=== PATIENT | male | born 1955 | race Caucasian/White ===

== ENCOUNTER → 2017-04-13 08:50 | Outpatient (CLI) | payer OTHER, SELFPAY ==
[2017-04-13 09:37] LABS: Cholesterol 233 mg/dL (200); Glucose 104 mg/dL (70-110); High Density Lipoprotein 45 mg/dL; Triglycerides 87 mg/dL; Very Low Density Lipoprotein 17 mg/dL (5-40)
== END ==
PROVIDERS: Family Provider Family Medicine; PCP Family Medicine; Visit Provider Family Medicine
DX: Z13.1 Encounter for screening for diabetes mellitus (principal); Z13.220 Encounter for screening for lipoid disorders
CPT/HCPCS: 36415; 80061; 82947

== ENCOUNTER 2020-05-11 12:28 | Outpatient (RCR) | payer MEDICARE, SELFPAY | END 2020-05-11 23:59 | LOC: IMMUN 12:28 | PROVIDERS: PCP Family Medicine; Visit Provider Family Medicine | DX: Z23 Encounter for immunization (principal) | CPT/HCPCS: 0011A; 0012A ==

== ENCOUNTER 2024-08-28 17:22 | Emergency (ER) | payer MEDICARE, SELFPAY ==
[2024-08-28 17:22] VITALS: BP 101/70; BP 98/69; PULSE 85; PULSE 87; RESP 26; TEMP 36.6; O2SAT 92; O2SAT 95; BMI 23.1
--- NOTE | 2024-08-28 17:30 | EKG12_ITS ---
Test Reason : CP Blood Pressure : */* mmHG Vent. Rate : 88 BPM Atrial Rate : 88 BPM P-R Int : 148 ms QRS Dur : 78 ms QT Int : 384 ms P-R-T Axes : 69 62 73 degrees QTcB Int : 464 ms Normal sinus rhythm Normal ECG Confirmed by DARYL JUAREZ, JEREL ([id number]), editor continuity and script MARY MALDONADO ([id number]) on 08/31/2024 7:39:18 AM Referred By: CUONG Confirmed By: JEREL BRITO MD
[2024-08-28 17:31] VITALS: O2SAT 93
[2024-08-28] MEDS: 0.9% Normal Saline (1000mL) 1,000 ML 999 ML IV (17:33)
--- NOTE | 2024-08-28 17:34 | ED.VIS.CHEST ---
HPI History of Present Illness Chief Complaint: Chest Pain Detail of Chief Complaint: Right shoulder pain. Near syncope. Informant: patient Onset/Context/Timing Onset: Today Narrative Narrative: 69-year-old male was at home preparing steaks for dinner. He said he got sudden onset of right shoulder pain. Had a near syncopal episode. Denies any prior history. Denies any chest pain. Denies any cardiac history. Prior Similar Symptoms: No Recent Illness/Hospitalization: No CVD Risk Factors: Negative for Hypertension, Diabetes or Hypercholesterolemia PE Risk Factors: Negative for Recent Travel/Surgery, Recent Immobilization, Prior DVT or PE, Cancer or OCP + Smoking + >/=35 TAD Risk Factors: Negative for Marfan's Syndrome [facility] Medical History Migraine Allergy/AdvReac Type Severity Reaction Status Date / Time No Known Allergies Allergy Verified 08/28/24 17:23 Social History Smoking Status: Current every day smoker tobacco type: cigarettes ROS ROS ED ROS Narrative Denies recent illness. Denies recent chest pain or shortness of breath. Denies exertional dyspnea or chest pain. Constitutional Constitutional ED: Denies chills or fever(s) Eyes Eyes: Reports none ENT ENT ED: Denies ear pain Cardiovascular Cardiovascular: Denies chest pain, palpitations or racing heartbeat Respiratory/Chest Respiratory/Chest: Denies cough or dyspnea Gastrointestinal Gastrointestinal: Denies abdominal pain, constipation or diarrhea Genitourinary Genitourinary ED: Denies dysuria or hematuria Musculoskeletal Musculoskeletal: Denies arthralgias or back pain Integumentary Denies abscess or Abrasions Neurologic Neurologic: Denies headache(s) Psychiatric Psychiatric: Denies anxiety or depression Endocrine Endocrinology: Denies cold intolerance Hematologic/Lymphatic Hematologic/Lymphatic: Denies easy bleeding, easy bruising or lymphadenopathy Allergic/Immunologic Allergic/Immunologic ED: Denies mouth swelling, tongue swelling or urticaria EXAM Physical Exam Narrative Exam Narrative: 69-year-old male sitting upright in bed. Initial blood pressure 98/69. No distress. H EENT exam pupils round react light. Moist mucous membranes. No trauma. Neck nontender. No JVD. No lymphadenopathy. Lungs clear to auscultation bilaterally. Heart regular rhythm rate about 85 no murmur. Chest wall ribs nontender. Abdomen soft nontender. Moving all 4 extremities. 5-5 machine brush maker strength. Dorsi plantarflexion intact. Equal symmetrical radial pulses. Calves are nontender without edema or cords. Normal dorsi plantarflexion. Normal appearance of both upper and lower extremities. Back nontender. Skin diaphoretic. Warm to the touch. Neurologically he is awake and alert. Answering questions following commands. Const Vital Signs: 08/28/24 17:22 08/28/24 17:22 08/28/24 17:31 Temperature 98 F Temperature Source Temporal Pulse Rate 87 85 Respiratory Rate 26 H 26 H Blood Pressure 98/69 101/70 Blood Pressure Mean 78 80 Pulse Ox 92 95 93 Oxygen Delivery Method Room Air Room Air Room Air 08/28/24 18:45 Temperature Temperature Source Pulse Rate 87 Respiratory Rate 20 H Blood Pressure 110/74 Blood Pressure Mean 86 Pulse Ox 97 Oxygen Delivery Method Positive well nourished and well developed; Negative for obese, cachectic, contractures or unkempt General Appearance ED: well developed; Negative for unkempt, cachectic, contractures or pallor Nutritional Appearance: Negative for cachectic or obese HEENT Reports moist mucous membranes normocephalic and atraumatic Eyes PERRL and EOMs intact bilaterally General Eye ED: Negative for pale conjunctiva or scleral icterus Neck no lymphadenopathy, supple and no JVD General: Negative for tenderness Chest Wall inspection of chest normal and palpation of chest normal Resp normal respiratory effort and clear to auscultation bilaterally Cardio regular rate, regular rhythm, S1 normal heart sound, S2 normal heart sound and no murmurs Peripheral Pulses: pulses 2+ throughout GI soft to palpation, non-tender, non-distended and no masses Back/Spine no CVA tenderness and no thoracic nor lumbar tenderness Extremity normal to inspection General Extremety ED: Negative for edema, pulses abnormal or tenderness General Extremity: Negative for edema or pulses abnormal Neuro oriented x3 and CN's II-XII intact bilaterally Sensorium / Orientation: awake, alert, oriented to person, oriented to place and oriented to time; Negative for confused or lethargic Motor Exam: strength 5/5 throughout Psych mental status grossly normal Appearance: Negative for unkempt Mood & Affect: anxious Skin no rashes or lesions noted and no wounds Skin Narrative: clammy. General Skin Exam: Negative for jaundice or pallor Rashes: No rashes noted Trauma: Negative for abrasion MDM MDM MDM Narrative Medical decision making narrative: 69-year-old male was at home has not been recently ill and right shoulder pain and a near syncopal episode but did not lose conscious. Exam is benign he is transiently hypotensive but improving. Undergoing cardiac workup. Repeat exam patient doing all well at 8:04 PM. Still feels great. However all the test with a recurrent finding abnormal. I repeated exam exam is normal. Lungs are clear. Heart is a regular rhythm. His abdomen is benign. He is neurologically intact. I do not know exactly what happened. He is never anything like this before. Currently being discharged home with outpatient follow-up. Workup was negative. History & Record Review Discussion w/independent historian: Patient Lab Data Attestation: I reviewed the patient's lab results. Lab results narrative: CBC shows a white count of 13.7. H&H is 16 and 47. Platelets 356. BMP shows a sodium 136. Gap 18. BUN and creatinine 12 and 1. Glucose 113. Initial troponin 11. 2-hour troponin 8. Chest x-ray chronic changes no acute process. Labs: Laboratory Results - last 24 hr 08/28/24 08/28/24 17:25 19:20 WBC 13.7 H RBC 5.28 Hgb 16.0 Hct 47.2 MCV 89.4 MCH 30.3 MCHC 33.9 RDW Std Deviation 46.5 H RDW Coeff of Roni 14.3 Plt Count 356 MPV 9.1 Immature Gran % (Auto) 0.500 Neut % (Auto) 56.7 Lymph % (Auto) 28.4 [place] % (Auto) 9.9 Eos % (Auto) 3.2 Baso % (Auto) 1.3 H Absolute Neuts (auto) 7.7 Absolute Lymphs (auto) 3.88 Nucleated RBC % 0 Sodium 136 Potassium 4.6 Chloride 103 Carbon Dioxide 15.0 L Anion Gap 18 H BUN 12 Creatinine 1.01 Estim Creat Clear Calc 72.29 Est GFR (MDRD) Non-Af 80 BUN/Creatinine Ratio 11.9 Glucose 113 H Calcium 8.8 Troponin T High Sens 11 Troponin T Hi Sens 2 Hr 8 Radiography Chest X-Ray - ED: 1 View, Read by ED Physician, Read by Radiologist, Normal, Lungs, Mediastinum, Bony Structures, No Acute Disease and Chronic Changes Diagnostic Testing: Clinical Impression(s) from Imaging Studies Chest X-Ray 08/28/24 17:40 IMPRESSION: COPD. No acute findings. Reading Location: [id number] Chest x-ray, portable, 2 films 1 view interpreted by us by myself and radiologist shows chronic changes no acute process. Normal cardiac silhouette mediastinum. Rhythm Strip Rhythm Strip: Sinus Rhythm Rate: 88 Ectopy: None EKG Initial EKG: Attestation: I personally reviewed and interpreted this EKG as follows: Interpretation: Sinus Rhythm and No Acute Injury Pattern Comments: Normal sinus rhythm rate 88 no acute signs of MO or ischemia. Discharge Plan Triage Chief Complaint: Chest Pain Other Complaint: Upper Extremity Injury ED Provider: Fei Duran Dx/Rx/DC Orders Clinical Impression: Near syncope Instructions: ED Near-Fainting, Uncertain Cause Primary Care Provider: Joi Wharton Referrals: Breezy Baxter MD [Non-Staff] - 3-5 Days if not improving Activity Restrictions/Additional Instructions: Your exam, labs, EKG and chest x-ray were all unremarkable. No specific cause of what caused your symptoms. Follow-up with your doctor as needed. Return if feeling worse. Print Language: Micronesian Disposition Disposition: Home, Self Care
[2024-08-28 17:35] LABS: Absolute Lymphocyte Count 3.88 X10^3/uL (0.83-4.51); Absolute Neutrophil Count 7.7 X10^3/uL (2.0-7.7); Basophil# 0.18 X10^3/uL; Basophil% 1.3 % (0-1); Eosinophil# 0.44 X10^3/uL; Eosinophils% 3.2 % (0-5); Hematocrit 47.2 % (40-54); Lymphocyte # 3.88 X10^3/ul (0.83-4.51); Lymphocyte % 28.4 % (19-41); Mean Corp Hgb Conc 33.9 g/dL (32-36); Mean Corpuscular Hgb 30.3 pg (27.0-32.0); Mean Corpuscular Volume 89.4 fL (80-94); Mean Platelet Vol. 9.1 fl (6.2-12.0); Monocyte# 1.35 X10^3/uL; Monocyte% 9.9 % (0-10); NRBC Flagged by Analyzer 0 % (0-5); Neutrophil # 7.73 X10^3/uL (2.7-7.7); Neutrophil % 56.7 % (47-70); Platelet Count 356 K/mm3 (150-450); RBC Distribution Width CV 14.3 % (11.6-14.6); RBC Distribution Width SD 46.5 fl (35.1-43.9); Red Blood Count 5.28 M/mm3 (4.6-6.2); White Blood Count 13.7 K/mm3 (4.4-11.0)
--- NOTE | 2024-08-28 17:40 | RAD_ITS ---
PROCEDURE: CHEST 1 VIEW (PORTABLE) 08/28/2024 REASON FOR EXAM: CHEST PAIN TECHNIQUE: Frontal view of the chest. COMPARISON: None. FINDINGS: Hardware: None. Heart: The heart size is normal. Lungs: Findings of emphysema with scattered areas of scarring. No focal consolidation, pleural effusion or pneumothorax. Bones: Degenerative changes are identified within the thoracic spine. RAD/Chest 1 View (Portable) IMPRESSION: COPD. No acute findings. Reading Location: [id number]
[2024-08-28 18:01] LABS: Anion Gap 18 (5-15); BUN 12 mg/dL (4-19); BUN/Creat Ratio 11.9 RATIO (10-20); Calcium,Total 8.8 mg/dL (7.6-11.0); Chloride 103 mmol/L (98-108); Creatinine, Serum 1.01 mg/dL (0.70-1.20); EST Glomerular Filtration Rate 80 (>60); Estimated Creatinine Clearance 72.29 ml/min (50-250); Glucose 113 mg/dL (70-99); Potassium 4.6 mmol/L (3.3-5.1); Sodium Level 136 mmol/L (133-145); Troponin T High Sensitivity 11 ng/L (<=22)
[2024-08-28 18:45] VITALS: BP 110/74; PULSE 87; RESP 20; O2SAT 97
[2024-08-28 19:53] LABS: Troponin T High Sens 2 HR 8 ng/L (<=22)
== END 2024-08-28 20:22 | disposition home or self-care (01) ==
PROVIDERS: Emergency Provider Emergency Medicine; PCP Nurse Practitioner Family; Visit Provider Emergency Medicine
DX: R55 Syncope and collapse (principal); I95.9 Hypotension, unspecified; M25.511 Pain in right shoulder; F17.210 Nicotine dependence, cigarettes, uncomplicated
CPT/HCPCS: 71045; 80048; 84484; 85025; 93005; 99285; A4216